=== PATIENT | male | born 1960 | race Caucasian/White ===

== ENCOUNTER → 2018-06-13 08:38 | Outpatient (CLI) | payer OTHER ==
[2018-06-13 09:46] LABS: BASOPHILS 0.4 % (0-2); EOSINOPHILS 2.8 % (0-7); HEMATOCRIT 38.9 % (42.0-54.0); HEMOGLOBIN 13.8 g/dL (13.5-17.5); LYMPHOCYTES 29.4 % (15-50); MCH 34.8 pg (26.0-34.0); MCHC 35.5 g/dL (31.0-37.0); MEAN PLATELET VOLUME 11.3 fL (7.4-10.4); MONOCYTES 18.5 % (2-11); NEUTROPHILS 48.9 % (40-80); PLATELET COUNT 70 10x3/uL (130-400); RBC 3.97 10x6/uL (4.20-6.10); RDW 15.2 % (11.5-14.5); WBC 5.6 10x3/uL (4.8-10.8)
[2018-06-13 09:58] LABS: INR 1.43 (0.85-1.17); PROTIME 16.9 SECONDS (11.6-15.0)
[2018-06-13 10:09] LABS: ALBUMIN 2.8 g/dL (3.4-5.0); BILIRUBIN - DIRECT 0.71 mg/dL (0.00-0.30); BILIRUBIN - INDIRECT 1.17 mg/dL (0.00-1.00); BILIRUBIN - TOTAL 1.88 mg/dL (0.2-1.3); PROTEIN - SERUM 7.2 g/dL (6.4-8.2)
[2018-06-13 11:31] LABS: PLATELET ESTIMATE DECREASED
== END | disposition home or self-care (01) ==
LOC: D.US 08:30
PROVIDERS: Internal Medicine Gastroenterology
DX: K74.60 Unspecified cirrhosis of liver (principal); I85.00 Esophageal varices without bleeding

== ENCOUNTER → 2018-06-20 11:10 | Outpatient (CLI) | payer OTHER | END | disposition home or self-care (01) | LOC: D.LAB 06-19 10:15 | DX: K74.60 Unspecified cirrhosis of liver (principal) ==

== ENCOUNTER → 2018-06-28 08:29 | Outpatient (CLI) | payer OTHER | END | disposition home or self-care (01) | LOC: D.LAB 06-27 11:30 | DX: K74.60 Unspecified cirrhosis of liver (principal); R79.89 Other specified abnormal findings of blood chemistry ==